=== PATIENT | female | born 1955 | race Caucasian/White ===

== ENCOUNTER → 2021-11-04 09:45 | Outpatient (CLI) | payer BC, SELFPAY ==
[2021-11-04 19:37] LABS: SARS-CoV-2 RNA PCR Positive
== END ==
PROVIDERS: PCP Nurse Practitioner Family; Visit Provider Nurse Practitioner Family
DX: U07.1 COVID-19 (principal)
CPT/HCPCS: C9803; U0003; U0005

== ENCOUNTER → 2022-07-12 16:57 | Outpatient (CLI) | payer BC, SELFPAY ==
--- NOTE | ~2022-07-12 | XR_ITS ---
EXAMINATION: [id number] DATE: 07/12/2022 18:02 INDICATION: Right foot pain. TECHNIQUE: 3 views of right foot standing were obtained. COMPARISON: None. FINDINGS: Bone alignment is normal. No fracture. There is mild osteoarthritis of first metatarsophala ngeal joint and talonavicular joint. There is mild to moderate osteoarthritis of some of the interpha langeal joints. There is an enthesophyte at plantar aspect of calcaneal tuberosity. IMPRESSION: 1. Polyarticular osteoarthritis. Reviewed, dictated and finalized at location B.
--- NOTE | ~2022-07-12 | XR_ITS ---
EXAMINATION: [id number] DATE: 07/12/2022 18:02 INDICATION: Left foot pain. TECHNIQUE: 3 views of left foot standing were obtained. COMPARISON: None. FINDINGS: Bone alignment is normal. No fracture. There is moderate osteoarthritis of first metatarsop halangeal joint and mild to moderate osteoarthritis of some of the interphalangeal joints. There are enthesophytes at the posterior and plantar aspects of calcaneal tuberosity. There is a 2 mm radiopaqu e foreign body medial to first distal phalanx. IMPRESSION: 1. Polyarticular osteoarthritis. 2. 2 mm radiopaque foreign body medial to first distal phalanx. Reviewed, dictated and finalized at location B.
== END ==
PROVIDERS: PCP Nurse Practitioner Family; Visit Provider Podiatrist Foot & Ankle Surgery
DX: M19.071 Primary osteoarthritis, right ankle and foot (principal); M19.072 Primary osteoarthritis, left ankle and foot
CPT/HCPCS: 73630

== ENCOUNTER 2024-01-23 08:26 | Outpatient (CLI) | payer OTHER, SELFPAY ==
--- NOTE | ~2024-01-23 | MMUS_ITS ---
EXAMINATION: MM diagnostic [place] [facility] w [place], US breast LT limited HISTORY: Palpable left breast mass TECHNIQUE: Additional 3-D tomosynthesis images of the breasts were performed and synthetic 2-D images were generated. CAD analysis was submitted and interpreted. High resolution Limited left breast ultr asound was performed. COMPARISON: No prior studies for comparison. BREAST PARENCHYMAL COMPOSITION: Not dense: There are scattered areas of fibroglandular density. FINDINGS: MAMMOGRAPHIC FINDINGS: There is a spiculated mass in the lower central aspect of the left breast in the area of palpable con cern, posteriorly. ULTRASOUND: Limited left breast ultrasound: At 7:00, 6 cm from the nipple, there is an irregular shaped hypoechoi c mass with mixed posterior attenuation measuring 1.3 x 0.9 x 1.3 cm. There is no internal vascularit y. IMPRESSION: 1. Spiculated mass lower central left breast with corresponding sonographic abnormality measuring 1.3 cm. 2. Ultrasound-guided left breast biopsy recommended. BI-RADS category 5, highly suggestive of malignancy. Reviewed, dictated and finalized at location A. IMPRESSION: 1. Spiculated mass lower central left breast with corresponding sonographic abn ormality measuring 1.3 cm. 2. Ultrasound-guided left breast biopsy recommended. BI-RADS category 5, highly suggestive of malignancy.
--- NOTE | ~2024-01-23 | US_ITS ---
EXAMINATION: US soft tissue UE RT DATE: 01/23/2024 10:01 INDICATION: Right upper arm mass. TECHNIQUE: Multiple grayscale and Doppler ultrasound images of the right upper limb were obtained. COMPARISON: None FINDINGS: There is no abnormal mass in the patient's area of concern in the right upper arm. IMPRESSION: 1. No abnormal mass in the patient's area of concern in the right upper arm. Reviewed, dictated and finalized at location E.
== END 2024-01-23 08:27 ==
LOC: MICIMG 08:29
DX: N63.20 Unspecified lump in the left breast, unspecified quadrant (principal); R92.8 Other abnormal and inconclusive findings on diagnostic imaging of breast; R22.31 Localized swelling, mass and lump, right upper limb
CPT/HCPCS: 76642; 76882; 77062; 77066; G0279